=== PATIENT | male | born 1995 | race Caucasian/White ===

== ENCOUNTER 2016-12-24 12:13 | Emergency (ER) | payer OTHER ==
[2016-12-24] MEDS ORDERED: METOCLOPRAMIDE HCL 10 MG/2 ML VIAL ONE (12:46)
[2016-12-24] MEDS ORDERED: KETOROLAC TROMETHAMINE 30 MG/ML VIAL ONE (12:46)
--- NOTE | 2016-12-24 13:10 | ER NURSING DOCUMENTATION ---
Nurse's Notes [facility] Name:Erasmo Ames Age:21 yrs Sex:Male :1995 Arrival Date:12/24/2016 Time:12:13 Bed6 Private MD: Diagnosis:Shoulder Injury Presentation: 12/24 12:24 Presenting complaint: Patient states: I was playing on the snow and sliding down and I mk2 couldn't stop myself and ran into a rock with my left shoulder. It happened at 0800 and I took some ibuprofen and since then the pain started to go up my neck and down my ribs. Transition of care: Other Hike. 12:24 Acuity: [place] 4 mk2 12:24 Method Of Arrival: Walk In 2 Triage Assessment: 12:27 General: Appears in no apparent distress, Behavior is cooperative, pleasant. Neuro: No mk2 deficits noted. Musculoskeletal: Reports numbness in left arm since 0800. Injury Description: Soreness to the left shoulder. Pt denies head injury. Pt states his initial pain was in his shoulder and progressed to neck. Pt has full range of motion with his neck. Unable to lift left arm as of an hour ago. Historical: - Allergies: No known drug Allergies; - Home Meds: 1. None - PMHx: None; - PSHx: acl repair; broken left wrist; - Tetanus: < 10 years. - Ebola Screening: : Patient negative for fever greater than or equal to 101.5 degrees Fahrenheit, and additional compatible Ebola Virus Disease symptoms. Patient denies exposure to infectious person. Patient denies travel to an Ebola-affected area in the 21 days before illness onset. No symptoms or risks identified at this time. . - Immunization history: Flu Vaccine < 1 year. - Social history: Smoking status: Patient states was never smoker of tobacco. Patient uses alcohol occasionally. Patient/guardian denies using street drugs. Screenin:28 Infectious Disease Risk None. Abuse screen: Denies threats or abuse. Nutritional mk2 screening: No deficits noted. Assessment: 12:28 See Triage Assessment done by same RN. mk2 Vital Signs: 12:20 BP 118 / 67; Pulse 83; Resp 16; Temp 98.3(O); Pulse Ox 95% on R/A; Weight 88.45 kg (R); arc Height 6 ft. 4 in. (193.04 cm) (R); Pain 8/10; 13:04 BP 115 / 64; Pulse 74; Resp 15; Pulse Ox 95% ; Pain 3/10; mk2 12:20 Body Mass Index 23.74 (88.45 kg, 193.04 cm) arc ED Course: 12:15 Patient arrived in ED. em3 12:19 Eric Hubbard MD is Attending Physician. be 12:22 Ice pack to injury. arc 12:24 Mariella Urbina, RN is Primary Nurse. mk2 12:26 Triage completed. mk2 12:28 Patient moved to radiology. hz 12:28 Valuables Remains with patient. mk2 12:36 Patient moved back from radiology. hz 12:46 Resting quietly. mk2 13:03 Sling applied to left arm. mk2 Administered Medications: 12:32 CANCELLED (Duplicate Order): Dilaudid 1 mg IM once be 12:32 CANCELLED (Duplicate Order): Reglan 5 mg IM once be 12:32 CANCELLED (Duplicate Order): Toradol 30 mg IM once be 12:45 Drug: Toradol 30 mg; Route: IM; Site: left gluteus; mk2 13:06 Follow up: Response: Pain is decreased mk2 12:45 Drug: Dilaudid 1 mg; Route: IM; Site: left gluteus; mk2 13:07 Follow up: Response: No adverse reaction mk2 12:45 Drug: Reglan 5 mg; Route: IM; Site: right gluteus; mk2 13:07 Follow up: Response: No adverse reaction mk2 Outcome: 12:43 Discharge ordered by . be 13:04 Discharged to home ambulatory. mk2 13:04 Condition: good 13:04 Discharge instructions given to patient, Instructed on discharge instructions, follow up and referral plans. medication usage, Prescriptions given X 2. 13:09 Patient left the ED. mk2 07 17:09 Discharge F/U Call: Spoke with: parent of minor. Did your discharge instructions lc answer all of your questions? yes Overall Care on a scale of 1-10 with 10 being the best care, you rate our care as: Other comments: DOING FINE Signatures: Renae Ricketts RN RN Eric Hubbard MD MD be Kruger, Meg, RN RN 2 Gavin Mendosa em3 Yunior Carolynn, Reg Reg arc Taurus, Catrina hz
--- NOTE | 2016-12-24 13:10 | RADIOLOGY REPORT ---
HISTORY: Injury COMPARISON: None. FINDINGS: 4 views of the cervical spine obtained. There is minimal posterior subluxation of C3 on 4. No other s ubluxation. No compression deformity. The prevertebral tissues are normal. No scoliosis. The dens vie w is normal. IMPRESSION: Very minimal posterior subluxation of C3 on 4. No evidence of fracture, but if there is increase conc peterson CT scanning would be more sensitive. Final Electronic Signature: This report was electronically signed by Trav Hanson MD on 12/24/2016 1: 07 PM. rosamaria /
--- NOTE | 2016-12-24 13:11 | ER PHYSICIAN DOCUMENTATION ---
Physician Documentation [facility] Name:Erasmo Ames Age:21 yrs Sex:Male :1995 Arrival Date:12/24/2016 Time:12:13 Bed6 Private MD: Eric Brink Disposition: 12/24/16 12:43 Discharged to Home/Self Care. Impression: Shoulder Injury. - Condition is Good. - Discharge Instructions: SHOULDER IMMOBILIZER, SHOULDER PAIN (Uncertain Cause). - Prescriptions for naproxen 500 mg Oral tablet - take 1 tablet by ORAL route every 12 hours PRN pain; 60 tablet. Tramadol 50 mg Oral Tablet - take 1 tablet by ORAL route every 8 hours as needed; 12 tablet. - Medical Reconciliation form form. - Follow up: Private Physician; When: As needed; Reason: Recheck today's complaints, Continuance of care. - Problem is new. - Symptoms have improved. HPI: 12/24 12:50 This 21 yrs old Male presents to ER via Walk In with complaints of Shoulder be Injury - Left. 12:50 The patient or guardian complains of decreased range of motion, an injury, after be slipping on [place] on [place] to [facility] and sliding approximately 200 ft. Hiked out and came to ED, 4.5 hours from time of injury; c/o inability to lift or rotate left arm/shoulder. Historical: - Allergies: No known drug Allergies; - Home Meds: 1. None - PMHx: None; - PSHx: acl repair; broken left wrist; - Tetanus: < 10 years. - Ebola Screening: : Patient negative for fever greater than or equal to 101.5 degrees Fahrenheit, and additional compatible Ebola Virus Disease symptoms. Patient denies exposure to infectious person. Patient denies travel to an Ebola-affected area in the 21 days before illness onset. No symptoms or risks identified at this time. . - Immunization history: Flu Vaccine < 1 year. - Social history: Smoking status: Patient states was never smoker of tobacco. Patient uses alcohol occasionally. Patient/guardian denies using street drugs. ROS: 12:52 MS/extremity: Positive for decreased range of motion, pain, tenderness, of the anterior be aspect of left shoulder and posterior aspect of left shoulder, Negative for injury or acute deformity, ecchymosis. 12:52 All other systems are negative. Exam: 12:53 Constitutional: This is a well developed, well nourished patient who is awake, alert, be and in moderate distress. 12:53 Head/Face: Normocephalic, atraumatic. be Eyes: Pupils equal round and reactive to light, extra-ocular motions intact. Lids and lashes normal. Conjunctiva and sclera are non-icteric and not injected. Cornea within normal limits. Periorbital areas with no swelling, redness, or edema. ENT: Nares patent. No nasal discharge, no septal abnormalities noted. Tympanic membranes are normal and external auditory canals are clear. Oropharynx with no redness, swelling, or masses, exudates, or evidence of obstruction, uvula midline. Mucous membranes moist. Neck: Trachea midline, no thyromegaly or masses palpated, and no cervical lymphadenopathy. Supple, full range of motion without nuchal rigidity, or vertebral point tenderness. No Meningismus. Chest/axilla: Normal chest wall appearance and motion. Nontender with no deformity. No lesions are appreciated. Cardiovascular: Regular rate and rhythm with a normal S1 and S2. No gallops, murmurs, or rubs. Normal PMI, no JVD. No pulse deficits. Respiratory: Lungs have equal breath sounds bilaterally, clear to auscultation and percussion. No rales, rhonchi or wheezes noted. No increased work of breathing, no retractions or nasal flaring. Abdomen/GI: Soft, non-tender, with normal bowel sounds. No distension or tympany. No guarding or rebound. No evidence of tenderness throughout. Back: No spinal tenderness. No costovertebral tenderness. Full range of motion. Neuro: Awake and alert, GCS 15, oriented to person, place, time, and situation. Cranial nerves II-XII grossly intact. Motor strength 5/5 in all extremities. Sensory grossly intact. Cerebellar exam normal. Normal gait. 12:53 Psych: Awake, alert, with orientation to person, place and time. Behavior, mood, and affect are within normal limits. 12:53 Musculoskeletal/extremity: ROM: limited active range of motion, in the anterior aspect of left shoulder and posterior aspect of left shoulder, Circulation is intact in all extremities. Sensation intact. 12:53 Skin: Turgor: is excellent. Vital Signs: 12:20 BP 118 / 67; Pulse 83; Resp 16; Temp 98.3(O); Pulse Ox 95% on R/A; Weight 88.45 kg (R); arc Height 6 ft. 4 in. (193.04 cm) (R); Pain 8/10; 13:04 BP 115 / 64; Pulse 74; Resp 15; Pulse Ox 95% ; Pain 3/10; mk2 12:20 Body Mass Index 23.74 (88.45 kg, 193.04 cm) arc MDM: 12:20 Patient medically screened. be 12:54 Differential diagnosis: Anterior dislocation with fracture, humeral head fracture, be tendonitis. Data reviewed: vital signs, nurses notes, radiologic studies, plain films, and as a result, I will discharge patient, prescribe pain medication, Dilaudid, Toradol, Reglan. 12/24 13:12 Order name: CERVICAL SPINE; 2+V [id number] EDMS 12/24 13:14 Order name: SHOULDER; 2V+ [place] [id number] EDMS 12/24 12:50 Order name: ORTHO: Shoulder Immobilizer; Complete Time: 13:07 be Dispensed Medications: 12:32 CANCELLED (Duplicate Order): Dilaudid 1 mg IM once be 12:32 CANCELLED (Duplicate Order): Reglan 5 mg IM once be 12:32 CANCELLED (Duplicate Order): Toradol 30 mg IM once be 12:45 Drug: Toradol 30 mg; Route: IM; Site: left gluteus; mk2 13:06 Follow up: Response: Pain is decreased mk2 12:45 Drug: Dilaudid 1 mg; Route: IM; Site: left gluteus; mk2 13:07 Follow up: Response: No adverse reaction mk2 12:45 Drug: Reglan 5 mg; Route: IM; Site: right gluteus; mk2 13:07 Follow up: Response: No adverse reaction mk2 Signatures: Eric Hubbard MD MD be Kruger, Meg, RN RN mk2
--- NOTE | 2016-12-24 13:11 | RADIOLOGY REPORT ---
HISTORY: Injury COMPARISON: None. FINDINGS: 4 views of the left shoulder obtained. There is normal alignment to the acromioclavicular, and glenoh umeral joints. No fracture or dislocation. Soft tissues are normal. IMPRESSION: Negative left shoulder. Final Electronic Signature: This report was electronically signed by Trav Hanson MD on 12/24/2016 1: 08 PM. rosamaria /
== END 2016-12-24 13:09 | disposition home or self-care (01) ==
LOC: ER 12:13
DX: S49.82XA Other specified injuries of left shoulder and upper arm, initial encounter (principal); W00.2XXA Other fall from one level to another due to ice and snow, initial encounter; W22.8XXA Striking against or struck by other objects, initial encounter; Y92.838 Other recreation area as the place of occurrence of the external cause; Y93.29 Activity, other involving ice and snow
CPT/HCPCS: 72040; 96372; 99284; J1170; J1885; J2765